=== PATIENT | female | born 1965 | race Caucasian/White ===

== ENCOUNTER 2019-06-07 05:14 | Day surgery (SDC) | payer OTHER ==
[2019-06-07] MEDS ORDERED: MOXIFLOXACIN HCL (OPHTH) 1 DROP DROPS ONE (10:41)
[2019-06-07] MEDS ORDERED: PROPARACAINE 0.5% OPHTH SOL 15 ML BTTL ONE (10:41)
[2019-06-07] MEDS ORDERED: TROP 1%/CYCLOPEN 1%/PHENYL 2% DROPS ONE (10:41)
[2019-06-07] MEDS ORDERED: MIDAZOLAM INJ 2 MG/2 ML VIAL ONE (12:48)
[2019-06-07] MEDS ORDERED: PROPARACAINE 0.5% OPHTH SOL 15 ML BTTL LEFT_EYE ONE (12:51)
[2019-06-07] MEDS ORDERED: LIDOCAINE 1% MPF 2 ML VIAL INJ ONE (13:05)
[2019-06-07] MEDS ORDERED: BRIMONIDINE 0.2% OPHTH DROPS LEFT_EYE ONE ×2 (13:06→13:14)
[2019-06-07] MEDS ORDERED: TOBRAMYCIN SULF 0.3 % OPHT SOL 1 DROP LEFT_EYE ONE ×2 (13:06→13:14)
[2019-06-07] MEDS ORDERED: DEXAMETHASONE 0.1% OPHTH SOL 1 DROP LEFT_EYE ONE ×2 (13:06→13:14)
[2019-06-07] MEDS ORDERED: MOXIFLOXACIN HCL (OPHTH) 1 DROP DROPS LEFT_EYE ONE ×2 (13:06→13:13)
[2019-06-07] MEDS ORDERED: MIDAZOLAM INJ 5 MG/5 ML VIAL ONE (13:07)
== END 2019-06-07 13:58 | disposition home or self-care (01) ==
LOC: AMB 05:14
PROVIDERS: ATTEND Ophthalmology
DX: H25.12 Age-related nuclear cataract, left eye (principal); Z79.899 Other long term (current) drug therapy
CPT/HCPCS: 00142; 66984; J2250